=== PATIENT | male | born 1990 | race Caucasian/White ===

== ENCOUNTER 2018-02-27 07:00 | Emergency (ER) | payer SELFPAY ==
[2018-02-27] MEDS ORDERED: Sodium Chloride 0.9% 1,000 ML IV ONE (07:47)
--- NOTE | 2018-02-27 07:48 | EDM.PDOC ---
ED HPI GENERAL MEDICAL PROBLEM - General Chief Complaint: Chest Pain Stated Complaint: COUGH, BODY ACHES, NO SLEEP IN 3 DAYS Time Seen by Provider: 02/27/18 07:48 Source of Information: Reports: Patient - History of Present Illness INITIAL COMMENTS - FREE TEXT/NARRATIVE: HISTORY AND PHYSICAL: History of present illness: [Patient has had 2 out of 10 left-sided chest discomfort nonradiating worsened by cough he has persistent nonproductive cough which is kept him awake intermittent fever no nausea vomiting chills sweats] Review of systems: As per history of present illness and below otherwise all systems reviewed and negative. Past medical history: As per history of present illness and as reviewed below otherwise noncontributory. Surgical history: As per history of present illness and as reviewed below otherwise noncontributory. Social history: No reported history of drug or alcohol abuse. Family history: As per history of present illness and as reviewed below otherwise noncontributory. Physical exam: HEENT: Atraumatic, normocephalic, pupils reactive, negative for conjunctival pallor or scleral icterus, mucous membranes moist, throat clear, neck supple, nontender, trachea midline. Lungs: Clear to auscultation on right, breath sounds diminished on the left,, chest nontender. Heart: S1S2, regular, negative for clicks, rubs, or JVD. Abdomen: Soft, nondistended, nontender. Negative for masses or hepatosplenomegaly. Negative for costovertebral tenderness. Pelvis: Stable nontender. Genitourinary: Deferred. Rectal: Deferred. Extremities: Atraumatic, negative for cords or calf pain. Neurovascular unremarkable. Neuro: Awake, alert, oriented. Cranial nerves II through XII unremarkable. Cerebellum unremarkable. Motor and sensory unremarkable throughout. Exam nonfocal. Diagnostics: []CBC CMP UA lipase blood cultures 2 Chest 1 view Therapeutics: [Liter normal saline bolus ]EKG Levaquin 750 mg by mouth A DuoNeb Patient offered admission and declined/refused stating he would rather go home Levaquin 750 mg by mouth daily #10 no refill HFA Phenergan with codeine incentive spirometry sent with patient Impression: Left lower lobe pneumonia [Fever Cough] Definitive disposition and diagnosis as appropriate pending reevaluation and review of above. Chest Pain Score (Numeric/FACES): 3 - Related Data Allergies Allergy/AdvReac Type Severity Reaction Status Date / Time Penicillins Allergy Anaphylactic Verified 02/27/18 07:12 Shock Home Meds: Home Meds Albuterol Sulfate 2 puff INH ASDIRECTED PRN 12/21/15 [History] Past Medical History HEENT History: Reports: Hard of Hearing, Impaired Vision Cardiovascular History: Reports: Heart Murmur Other Cardiovascular History: leaky valve Respiratory History: Reports: Asthma - Infectious Disease History Infectious Disease History: Reports: Chicken Pox - Past Surgical History HEENT Surgical History: Reports: Adenoidectomy, Tonsillectomy Social & Family History - Family History Family Medical History: Noncontributory - Tobacco Use Smoking Status *Q: Never Smoker - Recreational Drug Use Recreational Drug Use: No ED ROS GENERAL - Review of Systems Review Of Systems: See Below ED EXAM, GENERAL - Physical Exam Exam: See Below Course - Vital Signs Last Recorded V/S: Last Vital Signs Temp 100.9 F H 02/27/18 07:13 Pulse 87 02/27/18 07:13 Resp 16 02/27/18 07:13 BP 122/72 02/27/18 07:13 Pulse Ox 95 02/27/18 07:13 - Orders/Labs/Meds Orders: Active Orders 24 hr Category Date Time Status EKG 12 Lead [EKG Documentation Completion] [RC] STAT Care 02/27/18 07:23 Active EKG Documentation Completion [RC] STAT Care 02/27/18 07:48 Active RT Aerosol Therapy [RC] ASDIRECTED Care 02/27/18 08:38 Active CULTURE BLOOD [BC] Stat Lab 02/27/18 08:05 Received CULTURE BLOOD [BC] Stat Lab 02/27/18 08:15 Received UA W/MICROSCOPIC [URIN] Stat Lab 02/27/18 07:47 Ordered Levofloxacin/Dextrose 5%-Water [Levaquin in D5W 750 MG/ Med 02/27/18 08:38 Active 150 ML] 750 mg Premix Bag 1 bag IV ONETIME Blood Culture x2 Reflex Set [OM.PC] Stat Oth 02/27/18 07:47 Ordered Medication Orders Levofloxacin/Dextrose 750 mg/ (Premix) 150 mls @ 100 mls/hr IV ONETIME ONE Stop: 02/27/18 10:07 Labs: Laboratory Tests 02/27/18 02/27/18 Range/Units 07:46 07:46 WBC 5.55 (4.0-11.0) K/uL RBC 4.86 (4.50-5.90) M/uL Hgb 15.2 (13.0-17.0) g/dL Hct 43.2 (38.0-50.0) % MCV 88.9 (80.0-98.0) fL MCH 31.3 (27.0-32.0) pg MCHC 35.2 (31.0-37.0) g/dL RDW Std Deviation 39.9 (28.0-62.0) fl RDW Coeff of Klarissa 12 (11.0-15.0) % Plt Count 180 (150-400) K/uL MPV 10.10 (7.40-12.00) fL Neut % (Auto) 82.1 H (48.0-80.0) % Lymph % (Auto) 10.6 L (16.0-40.0) % [place] % (Auto) 6.7 (0.0-15.0) % Eos % (Auto) 0.4 (0.0-7.0) % Baso % (Auto) 0.2 (0.0-1.5) % Neut # (Auto) 4.6 (1.4-5.7) K/uL Lymph # (Auto) 0.6 (0.6-2.4) K/uL [place] # (Auto) 0.4 (0.0-0.8) K/uL Eos # (Auto) 0.0 (0.0-0.7) K/uL Baso # (Auto) 0.0 (0.0-0.1) K/uL Nucleated RBC % 0.0 /100WBC Nucleated RBCs # 0 K/uL Sodium 136 (136-148) mmol/L Potassium 3.8 (3.5-5.1) mmol/L Chloride 102 (98-107) mmol/L Carbon Dioxide 26.6 (21.0-32.0) mmol/L BUN 12 (7.0-18.0) mg/dL Creatinine 1.4 H (0.8-1.3) mg/dL Est Cr Clr Drug Dosing 64.35 mL/min Estimated GFR (MDRD) 59.5 ml/min Glucose 116 H (74-106) mg/dL Calcium 8.3 L (8.5-10.1) mg/dL Total Bilirubin 0.3 (0.2-1.0) mg/dL AST 51 H (15-37) IU/L ALT 74 H (14-63) IU/L Alkaline Phosphatase 68 (46-116) U/L Total Protein 7.2 (6.4-8.2) g/dL Albumin 3.6 (3.4-5.0) g/dL Globulin 3.6 H (2.0-3.5) g/dL Albumin/Globulin Ratio 1.0 L (1.3-2.8) Triglycerides 72 (0-200) mg/dL Cholesterol 89 (50-200) mg/dL LDL Cholesterol, Calc 48 L (60-180) mg/dL VLDL Cholesterol 14 (5-55) mg/dL HDL Cholesterol 27 L (40-60) mg/dL Cholesterol/HDL Ratio 3.3 (3.3-6.0) Meds: Medications Generic Name Dose Route Start Last Admin Trade Name Freq PRN Reason Stop Dose Admin Levofloxacin/Dextrose 750 mg/ 150 mls @ 100 mls/hr 02/27/18 08:38 Premix IV 02/27/18 10:07 ONETIME ONE Discontinued Medications Generic Name Dose Route Start Last Admin Trade Name Freq PRN Reason Stop Dose Admin Albuterol/Ipratropium 3 ml 02/27/18 08:38 Duoneb 3.0-0.5 Mg/3 Ml NEB 02/27/18 08:39 ONETIME ONE Sodium Chloride 1,000 mls @ 999 mls/hr 02/27/18 07:47 02/27/18 08:10 Normal Saline IV 02/27/18 08:47 999 mls/hr STAT ONE Administration Departure - Departure Time of Disposition: 08:55 Disposition: Home, Self-Care 01 Condition: Fair Clinical Impression: Pneumonia - Discharge Information Referrals: PCP,None [Primary Care Provider] - Forms: ED Department Discharge Additional Instructions: Medication as prescribed Return if symptoms persist or worsen or new concerning symptoms develop Incentive spirometer 3 times daily Follow-up with primary care in one week sooner as needed [facility] [address] [place] [phone] The following information is given to patients seen in the emergency department who are being discharged to home. This information is to outline your options for follow-up care. We provide all patients seen in our emergency department with a follow-up referral. The need for follow-up, as well as the timing and circumstances, are variable depending upon the specifics of your emergency department visit. If you don't have a primary care physician on staff, we will provide you with a referral. We always advise you to contact your personal physician following an emergency department visit to inform them of the circumstance of the visit and for follow-up with them and/or the need for any referrals to a consulting specialist. The emergency department will also refer you to a specialist when appropriate. This referral assures that you have the opportunity for follow-up care with a specialist. All of these measure are taken in an effort to provide you with optimal care, which includes your follow-up. Under all circumstances we always encourage you to contact your private physician who remains a resource for coordinating your care. When calling for follow-up care, please make the office aware that this follow-up is from your recent emergency room visit. If for any reason you are refused follow-up, please contact the [facility] emergency department at and asked to speak to the emergency department charge nurse. - My Orders Last 24 Hours: My Active Orders 02/27/18 07:23 EKG 12 Lead [EKG Documentation Completion] [RC] STAT 02/27/18 07:47 UA W/MICROSCOPIC [URIN] Stat Blood Culture x2 Reflex Set [OM.PC] Stat 02/27/18 07:48 EKG Documentation Completion [RC] STAT 02/27/18 08:05 CULTURE BLOOD [BC] Stat 02/27/18 08:15 CULTURE BLOOD [BC] Stat 02/27/18 08:38 RT Aerosol Therapy [RC] ASDIRECTED Levofloxacin/Dextrose 5%-Water [Levaquin in D5W 750 MG/150 ML] 750 mg Premix Bag 1 bag IV ONETIME - Assessment/Plan Last 24 Hours: My Active Orders 02/27/18 07:23 EKG 12 Lead [EKG Documentation Completion] [RC] STAT 02/27/18 07:47 UA W/MICROSCOPIC [URIN] Stat Blood Culture x2 Reflex Set [OM.PC] Stat 02/27/18 07:48 EKG Documentation Completion [RC] STAT 02/27/18 08:05 CULTURE BLOOD [BC] Stat 02/27/18 08:15 CULTURE BLOOD [] Stat 02/27/18 08:38 RT Aerosol Therapy [RC] ASDIRECTED Levofloxacin/Dextrose 5%-Water [Levaquin in D5W 750 MG/150 ML] 750 mg Premix Bag 1 bag IV ONETIME
[2018-02-27] MEDS ORDERED: Levofloxacin/Dextrose 5%-Water 750 MG in Premix Bag 1 BAG IV ONE (08:38)
[2018-02-27] MEDS ORDERED: Albuterol/Ipratropium 3.0-0.5 MG/3 ML Neb Soln NEB ONE (08:38)
--- NOTE | 2018-02-27 08:50 | CR ---
EXAMINATION: Portable chest radiograph. HISTORY: Shortness of breath. FINDINGS: The trachea is midline. The cardiomediastinal silhouette is within normal limits. The left lingula in filtrate is noted. No pleural effusion or pneumothorax. Osseous structures appear unremarkable. IMPRESSION: 1. Left lingular infiltrate is noted consistent with pneumonia.
[2018-02-27] MEDS ORDERED: Acetaminophen 500 MG Tab ONE (09:35)
[2018-02-27] MEDS ORDERED: Acetaminophen 500 MG Tab PO ONE (09:36)
[2018-02-27 11:29] VITALS: BP 114/67
== END 2018-02-27 11:36 | disposition home or self-care (01) ==
LOC: MW.ED 07:00
DX: J18.9 Pneumonia, unspecified organism (principal); Z88.0 Allergy status to penicillin
CPT/HCPCS: 36415; 71045; 80053; 80061; 85025; 87040; 93005; 94640; 96361; 96365; 96366; 99284; A9270; J1956; J7040; J7620-GY

== ENCOUNTER 2021-09-15 11:42 | Emergency (ER) | payer SELFPAY ==
[2021-09-15] MEDS ORDERED: Dexamethasone 10 MG/ML SDV IM STA (12:07)
[2021-09-15] MEDS ORDERED: Ibuprofen 600 MG Tab PO ONE (12:07)
[2021-09-15] MEDS ORDERED: Diazepam 5 MG Tab PO ONE (12:10)
[2021-09-15] MEDS ORDERED: HYDROmorphone 1 MG/ML Syringe IM ONE (12:54)
[2021-09-15 14:36] VITALS: BP 117/69; PULSE 76
== END 2021-09-15 14:34 | disposition home or self-care (01) ==
LOC: MW.ED 11:42
DX: M54.50 Low back pain, unspecified (principal); Z88.0 Allergy status to penicillin
CPT/HCPCS: 72131; 96372; 99283; A9270; J1100; J1170

== ENCOUNTER 2023-01-01 19:26 | Emergency (ER) | payer SELFPAY ==
[2023-01-01] MEDS ORDERED: Sodium Chloride 0.9% 2.5 ML Syringe FLUSH PRN (19:46)
[2023-01-01] MEDS ORDERED: Sodium Chloride 0.9% 10 ML Syringe FLUSH PRN (19:46)
[2023-01-01 20:04] LABS: BASOPHILS PERCENT AUTO 0.3 % (0.0-1.5); EOSINOPHILS ABSOLUTE AUTO 0.2 K/uL (0.0-0.7); EOSINOPHILS PERCENT AUTO 3.1 % (0.0-7.0); HEMATOCRIT 46.8 % (38.0-50.0); HEMOGLOBIN 16.2 g/dL (13.0-17.0); LYMPHOCYTES ABSOLUTE AUTO 1.9 K/uL (0.6-2.4); LYMPHOCYTES PERCENT AUTO 30.4 % (16.0-40.0); MEAN CORPUSCULAR HEMOGLOBIN 31.3 pg (27.0-32.0); MEAN CORPUSCULAR HGB CONC 34.6 g/dL (31.0-37.0); MEAN CORPUSCULAR VOLUME 90.5 fL (80.0-98.0); MONOCYTES ABSOLUTE AUTO 0.4 K/uL (0.0-0.8); MONOCYTES PERCENT AUTO 6.8 % (0.0-15.0); NEUTROPHILS ABSOLUTE AUTO 3.8 K/uL (1.4-5.7); NEUTROPHILS PERCENT AUTO 59.4 % (48.0-80.0); NRBC ABSOLUTE 0 K/uL; PLATELET COUNT,PLT 271 K/uL (150-400); RED BLOOD CELL COUNT 5.17 M/uL (4.50-5.90); WHITE BLOOD CELL COUNT,WBC 6.35 K/uL (4.0-11.0)
[2023-01-01 20:26] LABS: A/G RATIO 1.3 (0.9-1.6); ALBUMIN 4.1 g/dL (3.4-5.0); BILIRUBIN TOTAL 0.5 mg/dL (0.2-1.0); CALCIUM 8.8 mg/dL (8.5-10.1); CARBON DIOXIDE,CO2 26.9 mmol/L (21.0-32.0); CREATININE 1.4 mg/dL (0.8-1.3); EST CRCL DRUG DOSING (CG) 62.01 mL/min; POTASSIUM,K 3.8 mmol/L (3.5-5.1); PROTEIN TOTAL,TP 7.3 g/dL (6.4-8.2)
[2023-01-01] MEDS ORDERED: Ketorolac 30 MG/ML SDV IVPUSH ONE (21:46)
[2023-01-01] MEDS ORDERED: Alum Hydro/Mag Hydro/Simeth XS 15 ML, Lidocaine 2% 5 ML PO ONE ×2 (21:46)
[2023-01-01] MEDS ORDERED: Aluminum Hydroxide/Magnesium Hydroxide/Simethicone XS Susp 30 ML Cup ONE (22:01)
[2023-01-01] MEDS ORDERED: Aluminum Hydroxide/Magnesium Hydroxide/Simethicone XS Susp 30 ML Cup PO ONE (22:06)
[2023-01-01 22:22] VITALS: BP 117/77; PULSE 72
== END 2023-01-01 22:19 | disposition home or self-care (01) ==
LOC: MW.ED 19:26
DX: R07.89 Other chest pain (principal); J45.909 Unspecified asthma, uncomplicated; Z88.0 Allergy status to penicillin; Z79.899 Other long term (current) drug therapy
CPT/HCPCS: 36415; 71045; 80053; 84484; 85025; 85379; 93005; 96374; 99285; A9270; J1885; J3490; 93010; 99284